=== PATIENT | female | born 1985 | race African-American/Black ===

== ENCOUNTER 2017-04-06 17:05 | Emergency (ER) | payer OTHER ==
[~2017-04-06] VITALS: Ht 167.6 cm; Wt 78.0 kg
[2017-04-06 17:06] VITALS: BP 139/83; PULSE 104; RESP 16; TEMP 98.1; O2SAT 98
[2017-04-06 18:39] LABS: BLOOD, URINE NEG (NEG); COMMENT (UR) CULT NOT INDICATED; CULTURE IF INDICATED CULT NOT INDICATED; GLUCOSE,URINE NEG (NEG); KETONE, URINE 80 mg/dL (NEG); MUCUS URINE MOD /lpf (OCC); NITRITE,URINE NEG (NEG); SQUAMOUS EPITHELIAL CELL URINE 4 /hpf (0-5); URINE COLOR YELLOW (YELLW/STRAW)
[2017-04-06 20:28] LABS: BASOPHIL % 0.3 % (0.0-2.0); EOSINOPHIL % 0.1 % (0.0-4.0); HEMATOCRIT 45.2 % (35.0-46.0); LYMPHOCYTE # 1.8 TH/MM3 (1.0-4.8); MEAN CELL VOLUME 88.8 FL (80.0-100.0); MEAN CORPUSCULAR HEMOGLOBIN 28.7 PG (27.0-34.0); MEAN CORPUSCULAR HGB CONC 32.3 % (32.0-36.0); MONO % 5.9 % (0.0-8.0); NEUT % 81.7 % (16.0-70.0); PLATELET COUNT 365 TH/MM3 (150-450); RED BLOOD COUNT 5.09 MIL/MM3 (4.00-5.30); RED CELL DISTRIBUTION WIDTH 13.9 % (11.6-17.2); WHITE BLOOD COUNT 14.7 TH/MM3 (4.0-11.0)
[2017-04-06] MEDS ORDERED: ONDANSETRON HCL 4 MG/2 ML VIAL IV ONE (20:30)
[2017-04-06] MEDS ORDERED: SODIUM CHLOR 0.9% 1000 ML INJ 1,000 ML IV ONE (20:30)
[2017-04-06 20:33] LABS: HEMO FLAGS AUTO DIFF
--- NOTE | 2017-04-06 20:35 | PD ---
HPI Chief Complaint: Abdominal Pain Time Seen by Provider: 20:15 Travel History International Travel<30 days: No Contact w/Intl Traveler<30days: No Traveled to known affect area: No History of Present Illness HPI The patient is a 31 year old female who presents to the [facility] emergency department with a history of reportedly having nausea and vomiting that began 2 weeks ago. The patient reports that she thought that she might be and took a test which was positive. She is a with one term vaginal delivery 10 years ago. The patient reports that since then she is continued to have vomiting. She's vomited 4 times in the last 24 hours. She reports that a few days ago she began to have a suprapubic abdominal discomfort. She reports that over the last few days she's had dysuria with urinary frequency and a white vaginal discharge. She denies having any vaginal bleeding. She reports that today she began to have muscle spasms in her low back and midepigastric abdominal pain. She denies having any diarrhea. On review of systems, the patient denies having any known fevers, cough, congestion , neck pain, chest pain, shortness of breath, or neurologic symptoms. LMP: Approximately January 20, 2017 [facility] Past Medical History Narrative Medical The patient's past medical history is reportedly none. ?: Past Surgical History Narrative Surgical The patient's past surgical history is reportedly none. Social History Alcohol Use: No Tobacco Use: No Substance Use: No Allergies-Medications (Allergen,Severity, Reaction): Coded Allergies: No Known Allergies (Unverified , 04/06/17) Reported Meds & Prescriptions Reported Meds & Active Scripts Active Clindamycin (Clindamycin HCl) 300 Mg Cap 300 Mg PO BID 7 Days Zofran Odt (Ondansetron Odt) 4 Mg Tab 4 Mg SL Q6HR PRN Review of Systems Except as stated in HPI: all other systems reviewed are Neg General / Constitutional: No: Fever Eyes: No: Visual changes HENT: No: Headaches Cardiovascular: No: Chest Pain or Discomfort Respiratory: No: Shortness of Breath Gastrointestinal: Positive: Nausea, Vomiting, Abdominal Pain, No: Changes in Bowel Habits, Indigestion, Loss of Appetite Genitourinary: Positive: Frequency, Dysuria, Pelvic Pain, Discharge, No: Urgency, Flank Pain, Vaginal Bleeding Musculoskeletal: Positive: Myalgias, Cramping, No: Pain Skin: No Rash Neurologic: Positive: Weakness (generalized weakness), No: Focal Abnormalities , Change in Mentation, Slurred Speech, Sensory Disturbance Psychiatric: No: Depression Endocrine: No: Polydipsia Hematologic/Lymphatic: No: Easy Bruising Physical Exam Narrative General: The patient is well-developed well-nourished female in no acute distress. Head and Neck exam: Head is normocephalic atraumatic. Eyes: EOMI, pupils are equal round and reactive to light. Nose: Midline septum with pink mucous membranes Mouth: Dentition unremarkable. Moist mucus membranes. Posterior oropharynx is not erythematous. No tonsillar hypertrophy. Uvula midline. Airway patent. Neck: No palpable lymphadenopathy. No nuchal rigidity. No thyromegaly. Cardiovascular: Sinus tachycardia in the low 100s without murmurs, gallops, or rubs. No pulse deficit to the extremities and simultaneous auscultation and palpation of her radial artery. Lungs: Clear to auscultation bilaterally. No wheezes, rhonchi, or rales. Abdomen: Soft, with reported suprapubic and midepigastric discomfort on palpation. No other tenderness on palpation of the other quadrants of the abdomen. No guarding , rebound, or rigidity. Negative [place] sign. No tenderness on palpation of McBurney's point. Normal bowel sounds are audible. Extremities: No clubbing, cyanosis, or edema. 2+ pulses in all 4 extremities. No calf tenderness on palpation. Back: No spinous process tenderness to palpation. No costovertebral angle tenderness to palpation. Neurologic Exam: Grossly nonfocal. Skin Exam: No rash noted. Intact skin that is warm and dry. Gynecologic exam: The patient was placed in the dorsal lithotomy position. Her external genitalia were examined. She had no evidence of rash or lesions. The speculum was placed into her vagina and the cervix was identified. She discharge. No cervical friability. On Bimanual exam: she has no cervical motion tenderness. No adnexal tenderness or prominence noted on palpation. No uterine tenderness or enlargement noted on palpation. Data Data Last Documented VS Vital Signs Date Time Temp Pulse Resp B/P Pulse Ox O2 Delivery O2 Flow Rate FiO2 04/06/17 21:36 78 16 139/76 100 Room Air 04/06/17 17:06 98.1 Orders Complete Blood Count With Diff (04/06/17 17:53) Comprehensive Metabolic Panel (04/06/17 17:53) Urinalysis - C+S If Indicated (04/06/17 17:53) Ed Urine Pregnancytest Poc (04/06/17 17:53) Lipase (04/06/17 17:53) Sodium Chlor 0.9% 1000 Ml Inj (Ns 1000 M (04/06/17 20:30) Ondansetron Inj (Zofran Inj) (04/06/17 20:30) Gc And Chlamydia Pcr (04/06/17 20:20) Complete Rh (04/06/17 20:20) Wet Prep Profile (04/06/17 20:20) Ed Poc Ultrasound (04/06/17 ) Blood Glucose (04/06/17 21:25) Beta Hcg (Quant/Titer) (04/06/17 18:20) Labs Laboratory Tests Test 04/06/17 04/06/17 04/06/17 18:05 18:20 21:50 Urine Color YELLOW Urine Turbidity CLEAR Urine pH 6.0 Urine Specific [place] 1.037 Urine Protein 30 mg/dL Urine Glucose (UA) NEG mg/dL Urine Ketones 80 mg/dL Urine Occult Blood NEG Urine Nitrite NEG Urine Bilirubin NEG Urine Urobilinogen 2.0 MG/DL Urine Leukocyte Esterase NEG Urine RBC 1 /hpf Urine WBC LESS THAN 1 /hpf Urine Squamous Epithelial 4 /hpf Cells Urine Mucus MOD /lpf Microscopic Urinalysis Comment CULT NOT INDICATED White Blood Count 14.7 TH/MM3 Red Blood Count 5.09 MIL/MM3 Hemoglobin 14.6 GM/DL Hematocrit 45.2 % Mean Corpuscular Volume 88.8 FL Mean Corpuscular Hemoglobin 28.7 PG Mean Corpuscular Hemoglobin 32.3 % Concent Red Cell Distribution Width 13.9 % Platelet Count 365 TH/MM3 Mean Platelet Volume 8.1 FL Neutrophils (%) (Auto) 81.7 % Lymphocytes (%) (Auto) 12.0 % Monocytes (%) (Auto) 5.9 % Eosinophils (%) (Auto) 0.1 % Basophils (%) (Auto) 0.3 % Neutrophils # (Auto) 12.0 TH/MM3 Lymphocytes # (Auto) 1.8 TH/MM3 Monocytes # (Auto) 0.9 TH/MM3 Eosinophils # (Auto) 0.0 TH/MM3 Basophils # (Auto) 0.0 TH/MM3 CBC Comment AUTO DIFF Differential Comment AUTO DIFF CONFIRMED Platelet Estimate NORMAL Platelet Morphology Comment NORMAL Sodium Level 134 MEQ/L Potassium Level 3.7 MEQ/L Chloride Level 100 MEQ/L Carbon Dioxide Level 22.8 MEQ/L Anion Gap 11 MEQ/L Blood Urea Nitrogen 10 MG/DL Creatinine 0.73 MG/DL Estimat Glomerular Filtration 112 ML/MIN Rate Random Glucose 62 MG/DL Calcium Level 10.0 MG/DL Total Bilirubin 0.4 MG/DL Aspartate Amino Transf 26 U/L (AST/SGOT) Alanine Aminotransferase 36 U/L (ALT/SGPT) Alkaline Phosphatase 78 U/L Total Protein 9.3 GM/DL Albumin 4.4 GM/DL Lipase 84 U/L Human Chorionic Gonadotropin, 675345 MIU/ML Quant Clue Cells (Wet Prep) PRESENT Vaginal Trichomonas (Wet Prep) NONE SEEN Vaginal Yeast (Wet Prep) NONE SEEN MDM Medical Decision Making Medical Screen Exam Complete: Yes Emergency Medical Condition: Yes Medical Record Reviewed: Yes Differential Diagnosis Threatened miscarriage, versus ectopic , versus cystitis, versus hyperemesis gravidarum, versus electrolyte derangement, versus dehydration Narrative Course During the course of the patients emergency department visit, the patients history, examination, and differential diagnosis were reviewed with the patient. The patient had IV access obtained and blood work sent for analysis. The patient's placed on a systems design engineer with oximetry and blood pressure monitoring. A bedside ultrasound will be done by me. The patient had a bedside test done that was positive. A quantitative beta hCG was ordered. The patient was initially provided normal saline 1 L IV fluid bolus, Zofran 4 mg IV. The patients laboratory studies were reviewed and remarkable for a white count of 14.7, hemoglobin 14.6, platelets 365 with 81.7 neutrophils. CMP is remarkable for a sodium of 134, glucose 62, total protein 9.3, lipase 84, urinalysis shows 30 protein 80 ketones, no other acute abnormality. The patient will have a repeat Accu-Chek done. Repeat Accu-Chek was actually found to be 75. A wet prep is positive for bacterial vaginosis. A bedside ultrasound was noted to show an intrauterine with heart tones that were normal, and an active fetus on examination. The patient was able to tolerate by mouth hydration with Gatorade. The patient is resting comfortably and feels better, is alert and in no distress. The patients results and examination findings were discussed with the patient. The repeat examination is unremarkable and benign. The history, exam, diagnostic testing, and current condition do not suggest any significant pathology to warrant further testing, continued ED treatment, admission, or surgical evaluation at this point. The vital signs have been stable. The patient does not have uncontrollable pain, intractable vomiting, or other significant symptoms. The patient's condition is stable and appropriate for discharge. The patient will pursue further outpatient evaluation with a primary care physician or other designated or consulting physician as indicated in the discharge instructions. The patient expressed understanding and was agreeable with this plan. Procedures Procedure Narrative Emergency Department Pelvic ultrasound was performed with patient consent. The curvilinear probe was used in the transverse and sagittal views within the suprapubic region revealing single intrauterine . heart rate was 178. The fetus was active on examination. Diagnosis Primary Impression: Vomiting affecting Additional Impression: Bacterial vaginosis Referrals: Maura Duran MD Diabetes Specialist 3 days Patient Instructions: General Instructions, Nausea and Vomiting in ( ED) Med/Other Pt SpecificInfo: Prescription(s) given Scripts Clindamycin 300 Mg [id number] Mg PO BID 7 Days Ref 0 Prov:Kelly Shoemaker MD 04/06/17 Ondansetron Odt (Zofran Odt)4 Mg Tab4 Mg SL Q6HR PRN (Nausea/Vomiting) #7 TAB Ref 0 Prov:Kelly Shoemaker MD 04/06/17 Disposition: 01 DISCHARGE HOME Condition: Stable Kelly Shoemaker MD Apr 06, 2017 20:35
[2017-04-06 20:42] LABS: ANION GAP 11 MEQ/L (5-15); AST (GOT) 26 U/L (15-37); BICARBONATE 22.8 MEQ/L (21.0-32.0); BLOOD UREA NITROGEN 10 MG/DL (7-18); CHLORIDE 100 MEQ/L (98-107); GLOMERULAR FILTRATION RATE 112 ML/MIN (>89); POTASSIUM 3.7 MEQ/L (3.5-5.1); SODIUM (NA) 134 MEQ/L (136-145)
[2017-04-06] MEDS ORDERED: ZOFR4TAB3 SL (20:45)
[2017-04-06 20:47] LABS: ALKALINE PHOSPHATASE 78 U/L (45-117); ALT (GPT) 36 U/L (10-53); TOTAL BILIRUBIN ADULT 0.4 MG/DL (0.2-1.0)
[2017-04-06 21:20] LABS: PLATELET ESTIMATE SMEAR NORMAL (NORMAL); PLATELET MORPHOLOGY NORMAL (NORMAL); SCAN/DIFF AUTO DIFF CONFIRMED
[2017-04-06 21:36] VITALS: BP 139/76; PULSE 78; RESP 16; O2SAT 100
[2017-04-06 22:32] LABS: BETA HCG QUANT 155226 MIU/ML (0-5)
[2017-04-06] MEDS ORDERED: CLIN1CAP6 PO (22:52)
[2017-04-07 01:33] LABS: CHLAMYDIA PCR NOT DETECTED (NOT DETECT); NEISSERIA PCR NOT DETECTED (NOT DETECT)
== END 2017-04-06 23:11 | disposition home or self-care (01) ==
LOC: NEPE 17:05
DX: O21.0 Mild hyperemesis gravidarum (principal); O23.591 Infection of other part of genital tract in pregnancy, first trimester; N76.0 Acute vaginitis; B96.89 Other specified bacterial agents as the cause of diseases classified elsewhere; Z3A.00 Weeks of gestation of pregnancy not specified
CPT/HCPCS: 80053; 81001; 83690; 84702; 84703; 85025; 86901; 87210; 87491; 87591; 96361; 96374; 99284; J2405; J7030